=== PATIENT | male | born 1985 | race Two or more races ===

== ENCOUNTER 2016-12-29 12:09 | Emergency (ER) | payer BC ==
[~2016-12-29] VITALS: Ht 188 cm; Wt 123.0 kg
[2016-12-29 12:11] VITALS: BP 129/80
[2016-12-29] MEDS ORDERED: LIDOCAINE 1%, 20ML SQ ONE (12:30)
[2016-12-29] MEDS ORDERED: LIDOCAINE 1%, 20ML ONE (12:50)
== END 2016-12-29 14:03 | disposition home or self-care (01) ==
LOC: ED 13:57
DX: L03.221 Cellulitis of neck (principal); L72.3 Sebaceous cyst; Z88.0 Allergy status to penicillin
CPT/HCPCS: 10060; 99283